=== PATIENT | male | born 1995 | race Caucasian/White ===

== ENCOUNTER 2017-06-24 16:42 | Emergency (ER) | payer BC ==
--- NOTE | 2017-06-24 21:01 | RAD ---
PA AND LATERAL VIEWS CHEST: HISTORY: Chest pain. FINDINGS: The heart size is normal. The lungs are well expanded without focal areas of consolidation, pneumot horax, or pleural effusions. No acute osseous abnormalities are seen. IMPRESSION: No radiographic evidence of acute cardiopulmonary process. POS: [facility]
[2017-06-24 21:13] LABS: ALT (SGPT) 55 U/L (8-55); AST (SGOT) 25 U/L (5-34); Alkaline Phosphatase 80 U/L (40-150); Anion Gap 12 mmol/L (10-20); BUN (Urea Nitrogen) 14 mg/dL (8.9-20.6); Bilirubin, Total 0.7 mg/dL (0.2-1.2); Calc. Creatinine Clearance 0 mL/min (70-130); Calcium 9.7 mg/dL (7.8-10.44); Carbon Dioxide 27 mmol/L (22-29); Chloride 103 mmol/L (98-107); Estimated GFR-MDRD 89; Magnesium 2.1 mg/dL (1.6-2.6); Protein, Total 7.5 g/dL (6.0-8.3)
[2017-06-24 21:14] LABS: #Lymphocytes 1.8 thou/uL (1.20-3.40); #Monocytes 0.6 thou/uL (0.11-0.59); #Neutrophils 8.9 thou/uL (1.40-6.50); %Basophils 0.3 % (0.0-1.0); %Eosinophils 0.4 % (0.0-10.0); %Lymphocytes 15.9 % (21.0-51.0); %Monocytes 5.5 % (0.0-10.0); Hematocrit 45.5 % (42.0-52.0); Mean Platelet Volume 7.4 fL (7.4-10.4); White Blood Cell (WBC) Count 11.4 thou/uL (4.8-10.8)
[2017-06-24 21:18] LABS: Troponin I Less than 0.010 ng/mL (< 0.028)
== END 2017-06-24 23:12 | disposition home or self-care (01) ==
LOC: ERS 16:42
DX: R00.2 Palpitations (principal); J45.909 Unspecified asthma, uncomplicated
CPT/HCPCS: 71020; 80053; 82553; 83735; 84443; 84484; 85025; 85379; 93005; 96360